=== PATIENT | female | born 1945 | race Caucasian/White ===

== ENCOUNTER 2022-01-17 21:41 | Inpatient (IN) | payer MEDICARE, SELFPAY ==
--- NOTE | ~2022-01-17 | CT_ITS ---
EXAMINATION: CT HEAD WITHOUT CONTRAST CLINICAL INFORMATION: Stroke protocol COMPARISON: None. TECHNIQUE: Multidetector CT examination of the head is performed without contrast. This CT examination was performed using dose optimization techniques as appropriate, variously including the following: *Automated exposure control *Adjustment of mA and/or kV according to patient size (this includes techniques or standardized protocols for targeted exams where dose is matched to indication/reason for exam; i.e. extremities or head) *Use of iterative reconstruction technique DLP: 723 mGy-cm FINDINGS: There is no evidence of a recent intracranial hemorrhage or extra-axial collection. The midline structures are nondisplaced. The ventricles, cisterns, and sulci are within normal limits. There is no evidence of an intra-axial mass. There are no suspicious focal areas of abnormal brain attenuation. The mckeon-white interface is within normal limits. There is no evidence of acute territorial infarct. There are some scattered nonspecific white matter low attenuating abnormalities. This could be related to microangiopathy. This includes the medial temporal lobe and internal capsules on each side. The paranasal sinuses and mastoids are within normal limits. CT/CT head for stroke IMPRESSION: 1. There is no evidence of a recent intracranial hemorrhage. 2. No acute infarct. 3. Nonspecific white matter disease. This critical result was discussed with Roz Morales at 2200 hours on 01/17/22 and it was ascertained that the content and urgency of the report was understood at the time of direct communication.
--- NOTE | ~2022-01-17 | XR_ITS ---
EXAMINATION: XR CHEST CLINICAL INFORMATION: Shortness of breath COMPARISON: None TECHNIQUE: Frontal view of the chest was obtained. FINDINGS: No significant abnormality is noted involving the heart, lungs, mediastinum, bony thorax or soft tissues. XR/XR chest 1V IMPRESSION: Unremarkable examination.
--- NOTE | ~2022-01-17 | CT_ITS ---
CT ANGIOGRAM NECK WITH CONTRAST CT ANGIOGRAM BRAIN WITH CONTRAST CLINICAL INFORMATION: Fall. Stroke. COMPARISON: Head CT performed earlier the same day. TECHNIQUE: Test bolus sequences followed by intravenous administration 70 mL of Omnipaque 350. Helical imaging was performed in the axial plane from the thoracic inlet to the skull vertex. Delayed postcontrast imaging of the head was also performed. The data was processed at the 3d technologist workstation for generation of MIP sequences. Angled MIPs and volume rendered reformatted images were also generated at an offline 3D workstation under concurrent supervision. Stenoses are assessed in accordance with NASCET criteria unless otherwise indicated. This CT examination was performed using dose optimization techniques as appropriate, variously including the following: *Automated exposure control *Adjustment of mA and/or kV according to patient size (this includes techniques or standardized protocols for targeted exams where dose is matched to indication/reason for exam; i.e. extremities or head) *Use of iterative reconstruction technique FINDINGS: BRAIN: There is mild to moderate chronic microangiopathy. [There is no intracranial hemorrhage, hydrocephalus, extra-axial surface collection, midline shift, or other herniation pattern. [place] to white matter differentiation is diffusely maintained without evidence of an evolved acute territorial infarct. The basilar cisterns are preserved. No significant soft tissue abnormality. No acute osseous abnormality. There is mild mucosal thickening throughout the paranasal sinuses. Mastoid air cells are clear. CERVICAL SOFT TISSUES AND LUNG APICES: Imaged upper lungs are clear. There is multilevel cervical spondylosis. No significant soft tissue findings. NECK CTA: [There is a classic 3 vessel configuration of the aortic arch. Proximal arch vessels are non-stenotic. The vertebral arteries are codominant. No significant ostial stenosis is visualized on either side. Both vertebral arteries are widely patent throughout their extracranial cervical course. Both common carotid arteries are normal in course and caliber. There is atherosclerotic calcification involving the carotid bifurcations bilaterally without significant stenosis involving the internal carotid arteries on either side.] BRAIN CTA: Atherosclerotic calcification throughout the carotid siphons bilaterally without significant stenosis. No focal flow-limiting stenosis nor discrete proximal large artery occlusion. No aneurysm. Timing of the contrast bolus allows assessment of the major dural venous sinuses, which all opacify normally] CT/CT angio head neck stroke IMPRESSION: - No acute intracranial findings. Mild to moderate chronic microangiopathy. If focal neurologic deficit persists, MRI would be more sensitive in assessment. - No acute arterial occlusions and no significant arterial stenoses within the head or neck. There is atherosclerotic calcification involving the carotid bifurcations bilaterally without significant stenosis involving the internal carotid arteries on either side.] Findings discussed with Dr. Morales at 10:47 PM on 01/17/2022.
--- NOTE | ~2022-01-17 | MR_ITS ---
EXAMINATION: MR BRAIN WITHOUT CONTRAST CLINICAL INFORMATION: Stroke. COMPARISON: Head CT 01/17/2022. TECHNIQUE: Multiplanar, multisequence imaging of the brain was performed without intravenous contrast. FINDINGS: There is no acute infarction, mass, hemorrhage, or extra-axial collection. Moderate patchy T2/FLAIR hyperintensity seen within the cerebral white matter, typical of chronic microangiopathy. There is diffuse brain parenchymal volume loss with prominence of the ventricles and sulci. The flow voids of the major intracranial arteries appear intact. The bones and extracranial soft tissues are unremarkable. MR/MR head/brain wo con IMPRESSION: No acute infarct, mass lesion, intracranial hemorrhage, or evidence of hydrocephalus. Background changes of moderate chronic microangiopathy and brain parenchymal volume loss.
--- NOTE | 2022-01-17 21:43 | ECG_ITS ---
Test Reason : ams Blood Pressure : / mmHG Vent. Rate : 076 BPM Atrial Rate : 076 BPM P-R Int : 152 ms QRS Dur : 082 ms QT Int : 396 ms P-R-T Axes : 042 064 054 degrees QTc Int : 445 ms Normal sinus rhythm Normal ECG No previous ECGs available Referred By: Roz Morales Electronically Signed By:Rj Quan
[2022-01-17 21:46] VITALS: BP 117/66; PULSE 71; PULSE 89; RESP 17; TEMP 36.7; O2SAT 97; BMI 42.9
--- NOTE | 2022-01-17 21:50 | ED.NEUROSD ---
HPI - Neuro Symptoms/Deficit General Chief Complaint: Stroke Stated Complaint: Stroke Time Seen by Provider: 01/17/22 21:42 History of Present Illness HPI Narrative: Patient is a 76-year-old female with a history of TIAs in the past. Presents today with having acute episode of confusion. There was no seizure that was witnessed. There was a question fall that happened prior. Her helped her to the ground. Patient was very confused. Was yelling out mallet random words. On EMS arrival patient's symptoms seems that improved. Gradually over the ride in patient is now answering questions. No weakness in the upper or the lower extremity. No previous history of TIAs. No coughing or congestion upper respiratory symptoms. No changes in speech. Now is answering questions. Related Data Allergies Allergy/AdvReac Type Severity Reaction Status Date / Time No Known Allergies Allergy Verified 01/17/22 21:42 Review of Systems Review of Systems: Positive confusion No chest pain or shortness of breath no diaphoresis Sugar was over 100 Yes all other systems are reviewed and are negative [facility] Past Medical History Attestation statement: The following information was validated with the patient. Social History Social History Advance Directives: Yes Advance Directives Information Provided: No Advance Directives on File: No Physical Exam Vital Signs: Vital Signs: Last Vital Signs Temp 97.9 F 01/17/22 22:30 Pulse 76 01/17/22 22:30 Resp 16 01/17/22 22:30 BP 105/51 L 01/17/22 22:30 Pulse Ox 97 01/17/22 22:30 O2 Del Method 01/17/22 22:30 O2 Flow Rate 2 01/17/22 22:30 BMI result Body Mass Index 42.9 Appearance: Alert. Oriented X3. No acute distress. Eyes: Pupils equal, round and reactive to light. ENT: Pharynx normal. Neck: Normal inspection. Neck supple. No lymph nodes noted. No crepitus CVS: Normal heart rate and rhythm. Pulses normal. Normal S1 and S2 Respiratory: No respiratory distress. Breath sounds normal. No Wheezing. No rales Abdomen: Soft and nontender. No rigidity. No distention. good BS x4 Skin: Skin warm and dry. Normal skin color. Normal skin turgor. Extremities: No lower extremity edema. Neurovascular intact to all extremities. No Lacerations. No Rash Neuro: Oriented X 3. No motor deficit. No sensory deficit. Moving all extermities. No slurred speech Medications Administered Discontinued Medications Generic Name Dose Route Start Last Admin Trade Name Selena PRN Reason Stop Dose Admin Iohexol 100 ml 01/17/22 22:07 01/17/22 22:08 Iohexol 350 Mg/Ml 100 Ml Infus..Btl IV 01/17/22 22:08 70 ml ONCE ONE Administration MDM - Neuro Symptoms/Deficit MDM Narrative Medical decision making narrative: 76 years old presents today with having changes in mental status. Patient's urine is grossly infected. Sugar was about 100 there is no evidence hypoglycemia. A stroke alert was called. CT scan of the head was grossly negative for any acute evidence of bleeding. Patient is on Xarelto not a candidate for tPA. Patient's symptoms rapidly improving not a candidate for tPA. In the ED patient answer questions appropriately. Thinks that it is May. Gradually patient's mental status improved even more she is now back to baseline she notices the summer she recognizes her she is awake alert oriented. Moving all extremity. Repeat exam showed neurovascularly intact. NIH stroke scale 0. Question TIA causing patient's symptoms. Patient's case discussed with hospitalist service for admission. Medical Records Attestation: I reviewed the patient's medical records. Lab Data Attestation: I reviewed the patient's lab results. Result diagrams: 01/17/22 22:21 01/17/22 22:21 Labs: Lab Results 01/17/22 01/17/22 01/17/22 Range/Units 21:59 22:21 22:21 WBC 5.9 (4.8-10.8) X10*3/uL RBC 3.88 L (4.20-5.50) X10*6/uL Hgb 11.5 L (12.0-16.0) g/dl Hct 34.7 L (37.0-47.0) % MCV 89.4 (80.0-98.0) fL MCH 29.6 (27.0-33.0) pg MCHC 33.1 (31.0-35.0) g/dl RDW 14.0 (11.0-16.0) % Plt Count 190 (160-400) X10*3/uL MPV 9.6 (9.4-12.3) fL Immature Gran % (Auto) 0.3 (0.0-0.4) % Neut % (Auto) 51.5 (45-73) % Lymph % (Auto) 30.2 (20-40) % [place] % (Auto) 9.6 (2-11) % Eos % (Auto) 7.7 H (0-4) % Baso % (Auto) 0.7 (0-2) % Lymph # (Auto) 1.8 (1.2-4.9) X10*3/uL [place] # (Auto) 0.6 (0.1-1.2) X10*3/uL Eos # (Auto) 0.5 H (0.0-0.4) X10*3/uL Baso # (Auto) 0.0 (0.0-0.2) X10*3/uL Abs Immat Gran (auto) 0.02 (0.00-0.03) X10*3/uL Absolute Neuts (auto) 3.0 (2.0-8.3) x10*3/uL Absolute Nucleated RBC 0.000 (0.0-0.012) X10*3/uL Nucleated RBC % (auto) 0.0 (0.0-0.2) /100WBC PT 18.4 H (10.0-13.1) SEC Whole Blood PT 16.1 H (11.1-13.5) sec INR 1.6 H (0.9-1.1) Whole Blood INR 1.3 H (0.9-1.1) APTT 38.4 H (26.0-36.4) SEC Sodium (135-145) mmol/L Potassium (3.3-5.1) mmol/L Chloride (96-108) mmol/L Carbon Dioxide (22-29) mmol/L Anion Gap (12-20) BUN (9-16) mg/dL Creatinine (0.5-1.4) mg/dL Estim Creat Clear Calc Estimated GFR POC Glucose (60-115) mg/dL Random Glucose (60-115) mg/dL Calcium (8.4-10.2) mg/dL Phosphorus (2.7-4.5) mg/dL Magnesium (1.6-2.6) mg/dL Total Creatine Kinase (26-140) U/L Troponin I High Sens (<3.5-17.0) ng/L Urine Color Urine Appearance Urine pH (5.0-9.0) Ur Specific Grass Range (1.005-1.025) Urine Protein (Neg-Trace) mg/dL Urine Glucose (UA) (Negative) mg/dL Urine Ketones (Negative) mg/dL Urine Blood (Negative) Urine Nitrite (Negative) Ur Leukocyte Esterase (Negative) Urine RBC (0-2) /HPF Urine WBC (0-5) /HPF Ur Squamous Epith Cells (0-2) /HPF Urine Bacteria (None Seen) Hyaline Casts (0-2) /LPF 01/17/22 01/17/22 01/17/22 Range/Units 22:21 22:21 22:35 WBC (4.8-10.8) X10*3/uL RBC (4.20-5.50) X10*6/uL Hgb (12.0-16.0) g/dl Hct (37.0-47.0) % MCV (80.0-98.0) fL MCH (27.0-33.0) pg MCHC (31.0-35.0) g/dl RDW (11.0-16.0) % Plt Count (160-400) X10*3/uL MPV (9.4-12.3) fL Immature Gran % (Auto) (0.0-0.4) % Neut % (Auto) (45-73) % Lymph % (Auto) (20-40) % [place] % (Auto) (2-11) % Eos % (Auto) (0-4) % Baso % (Auto) (0-2) % Lymph # (Auto) (1.2-4.9) X10*3/uL [place] # (Auto) (0.1-1.2) X10*3/uL Eos # (Auto) (0.0-0.4) X10*3/uL Baso # (Auto) (0.0-0.2) X10*3/uL Abs Immat Gran (auto) (0.00-0.03) X10*3/uL Absolute Neuts (auto) (2.0-8.3) x10*3/uL Absolute Nucleated RBC (0.0-0.012) X10*3/uL Nucleated RBC % (auto) (0.0-0.2) /100WBC PT (10.0-13.1) SEC Whole Blood PT (11.1-13.5) sec INR (0.9-1.1) Whole Blood INR (0.9-1.1) APTT (26.0-36.4) SEC Sodium 140 (135-145) mmol/L Potassium 3.7 (3.3-5.1) mmol/L Chloride 104 (96-108) mmol/L Carbon Dioxide 24 (22-29) mmol/L Anion Gap 16 (12-20) BUN 16 (9-16) mg/dL Creatinine 0.73 (0.5-1.4) mg/dL Estim Creat Clear Calc 82.1 Estimated GFR > 60 POC Glucose 93 (60-115) mg/dL Random Glucose 90 (60-115) mg/dL Calcium 9.3 (8.4-10.2) mg/dL Phosphorus 2.4 L (2.7-4.5) mg/dL Magnesium 1.8 (1.6-2.6) mg/dL Total Creatine Kinase 59 (26-140) U/L Troponin I High Sens < 3.5 (<3.5-17.0) ng/L Urine Color Urine Appearance Urine pH (5.0-9.0) Ur Specific [place] Range (1.005-1.025) Urine Protein (Neg-Trace) mg/dL Urine Glucose (UA) (Negative) mg/dL Urine Ketones (Negative) mg/dL Urine Blood (Negative) Urine Nitrite (Negative) Ur Leukocyte Esterase (Negative) Urine RBC (0-2) /HPF Urine WBC (0-5) /HPF Ur Squamous Epith Cells (0-2) /HPF Urine Bacteria (None Seen) Hyaline Casts (0-2) /LPF 01/17/22 Range/Units 23:06 WBC (4.8-10.8) X10*3/uL RBC (4.20-5.50) X10*6/uL Hgb (12.0-16.0) g/dl Hct (37.0-47.0) % MCV (80.0-98.0) fL MCH (27.0-33.0) pg MCHC (31.0-35.0) g/dl RDW (11.0-16.0) % Plt Count (160-400) X10*3/uL MPV (9.4-12.3) fL Immature Gran % (Auto) (0.0-0.4) % Neut % (Auto) (45-73) % Lymph % (Auto) (20-40) % [place] % (Auto) (2-11) % Eos % (Auto) (0-4) % Baso % (Auto) (0-2) % Lymph # (Auto) (1.2-4.9) X10*3/uL [place] # (Auto) (0.1-1.2) X10*3/uL Eos # (Auto) (0.0-0.4) X10*3/uL Baso # (Auto) (0.0-0.2) X10*3/uL Abs Immat Gran (auto) (0.00-0.03) X10*3/uL Absolute Neuts (auto) (2.0-8.3) x10*3/uL Absolute Nucleated RBC (0.0-0.012) X10*3/uL Nucleated RBC % (auto) (0.0-0.2) /100WBC PT (10.0-13.1) SEC Whole Blood PT (11.1-13.5) sec INR (0.9-1.1) Whole Blood INR (0.9-1.1) APTT (26.0-36.4) SEC Sodium (135-145) mmol/L Potassium (3.3-5.1) mmol/L Chloride (96-108) mmol/L Carbon Dioxide (22-29) mmol/L Anion Gap (12-20) BUN (9-16) mg/dL Creatinine (0.5-1.4) mg/dL Estim Creat Clear Calc Estimated GFR POC Glucose (60-115) mg/dL Random Glucose (60-115) mg/dL Calcium (8.4-10.2) mg/dL Phosphorus (2.7-4.5) mg/dL Magnesium (1.6-2.6) mg/dL Total Creatine Kinase (26-140) U/L Troponin I High Sens (<3.5-17.0) ng/L Urine Color Yellow Urine Appearance Clear Urine pH 6.5 (5.0-9.0) Ur Specific Grass Range 1.015 (1.005-1.025) Urine Protein Negative (Neg-Trace) mg/dL Urine Glucose (UA) Negative (Negative) mg/dL Urine Ketones Negative (Negative) mg/dL Urine Blood Negative (Negative) Urine Nitrite Negative (Negative) Ur Leukocyte Esterase Trace H (Negative) Urine RBC 0-2 (0-2) /HPF Urine WBC 0-5 (0-5) /HPF Ur Squamous Epith Cells 0-2 (0-2) /HPF Urine Bacteria None Seen (None Seen) Hyaline Casts 0-2 (0-2) /LPF NIH Stroke Scale Time: 22:08 Level of Consciousness: Alert Level of Consciousness Questions: Answers both questions correctly Level of Consciousness Commands: Performs both tasks correctly Best Gaze: Normal Visual: No visual loss Facial Palsy: Normal Motor Arm (Right): No drift Motor Arm (Left): No drift Motor Leg (Right): No drift Motor Leg (Left): No drift Limb Ataxia: Absent Sensory: Normal Best Language: No aphasia Dysarthia: Normal Extinction and Inattention: No abnormality Score: 0 Discharge Plan Discharge Clinical Impression: Transient cerebral ischemia Patient Disposition: Admitted As Inpatient
[2022-01-17 22:02] LABS: Prothrombin Time Whole Bld POC 16.1 sec (11.1-13.5); ~PT, ~INR - Anti Coag Clinic 1.3 (0.9-1.1)
[2022-01-17] MEDS: iohexoL 350 MG/ML 100 ML INFUS..BTL IV (22:08)
[2022-01-17 22:30] VITALS: BP 105/51; PULSE 76; RESP 16; TEMP 36.6; O2SAT 97
[2022-01-17 22:31] LABS: MANUAL DIFF FLAG NO
[2022-01-17 22:32] LABS: Basophils Percent Auto 0.7 % (0-2); Eosinophils Absolute Auto 0.5 X10*3/uL (0.0-0.4); Eosinophils Percent Auto 7.7 % (0-4); Hematocrit 34.7 % (37.0-47.0); Hemoglobin 11.5 g/dl (12.0-16.0); Imm Gran Abs Auto 0.02 X10*3/uL (0.00-0.03); Imm Gran Pct Auto 0.3 % (0.0-0.4); Lymphocytes Absolute Auto 1.8 X10*3/uL (1.2-4.9); Lymphocytes Percent Auto 30.2 % (20-40); Mean Corpuscular HGB Conc 33.1 g/dl (31.0-35.0); Mean Corpuscular Hemoglobin 29.6 pg (27.0-33.0); Mean Corpuscular Volume 89.4 fL (80.0-98.0); Mean Platelet Volume 9.6 fL (9.4-12.3); Monocytes Absolute Auto 0.6 X10*3/uL (0.1-1.2); Monocytes Percent Auto 9.6 % (2-11); Neutrophils Percent Auto 51.5 % (45-73); Platelet Count 190 X10*3/uL (160-400); Red Blood Count 3.88 X10*6/uL (4.20-5.50); White Blood Count 5.9 X10*3/uL (4.8-10.8)
[2022-01-17 22:39] LABS: Glucose, Whole Blood 93 mg/dL (60-115)
[2022-01-17 22:39] LABS: INTERNATIONAL NORM RATIO 1.6 (0.9-1.1); Prothrombin Time 18.4 SEC (10.0-13.1)
[2022-01-17 22:41] LABS: Partial Thromboplastin Time 38.4 SEC (26.0-36.4)
[2022-01-17 22:49] LABS: Anion Gap 16 (12-20); Blood Urea Nitrogen 16 mg/dL (9-16); Calcium 9.3 mg/dL (8.4-10.2); Carbon Dioxide 24 mmol/L (22-29); Creatinine Clr Calc Pharmacy 82.1; Estimated Glomerular Filt Rate > 60; Glucose Random 90 mg/dL (60-115); Magnesium 1.8 mg/dL (1.6-2.6); Phosphorus 2.4 mg/dL (2.7-4.5)
[2022-01-17 22:50] LABS: Chloride 104 mmol/L (96-108); Potassium 3.7 mmol/L (3.3-5.1); Sodium 140 mmol/L (135-145)
[2022-01-17 22:55] LABS: Troponin-I High Sensitivity < 3.5 ng/L (<3.5-17.0)
[2022-01-17 23:02] LABS: Stroke Lab Use COMPLETE
[2022-01-17 23:11] LABS: Appearance Urine Clear; Color Urine Yellow; Glucose Urine UA Negative (Negative); Leukocyte Esterase Urine Trace (Negative); Nitrite Urine Negative (Negative); PH 6.5 (5.0-9.0); Specific Gravity - Urine 1.015 (1.005-1.025); UMIC TRIGGER UACC YES; Urine Blood Negative (Negative); Urine Ketones Negative (Negative); Urine Protein Negative (Neg-Trace)
[2022-01-17 23:16] LABS: Bacteria Urine None Seen (None Seen); Hyaline Casts Urine 0-2 /LPF (0-2); RBC Urine 0-2 /HPF (0-2); Squamous Epithelial Cell Urine 0-2 /HPF (0-2); WBC Urine 0-5 /HPF (0-5)
--- NOTE | 2022-01-17 23:22 | PC.NURSE ---
this rn and anastacia hutton assisted pt on bedpan. able to obtain urine sample at this time. linen changed on bed and extra linen removed from bed. pt okay'd visit from at this time
--- NOTE | 2022-01-18 | EEG_ITS ---
This is a 16-channel EEG with an EKG lead. The patient is reported awake during the tracing. Background EEG rhythm is about 10 hertz, 5 to 20 microvolt posteriorly, lower amplitude fast anteriorly. Photic stimulation does not produce any significant abnormality. Hyperventilation is not performed. Cardiac lead does not reveal any significant abnormality. No sharp wave spikes or paroxysmal tendency or asymmetry noted. IMPRESSION: Unremarkable EEG. MD CAITY Ashley/NOEMÍ / [id number]
--- NOTE | 2022-01-18 00:28 | PM.IMHP ---
History of Present Illness Date of Service: 01/18/22 Chief Complaint: Speech deficit This is a 76-year-old female with pertinent history of paroxysmal atrial fibrillation on Xarelto, mood disorder, essential hypertension, mixed hyperlipidemia who presents to the emergency department for evaluation of speech deficit. Patient states prior to presentation her noticed that patient was not making sense. She had difficulty in speech which lasted for unknown duration of time. Patient's symptoms gradually improved and in the ER patient was with normal speech and mentation. Patient states she has a history of TIAs/strokes and previously it presented with similar speech deficit. No motor weakness noted. No tongue bite, urinary or bowel incontinence. No jerking movement of extremities. No loss of consciousness. Patient denies fever, chills, chest discomfort, palpitations, shortness of breath, abdominal pain, changes in urinary or bowel habits. No vision changes, tingling numbness In the emergency department, CT head without acute intracranial abnormality Review of Systems Constitutional: Constitutional: Reports no additional constitutional complaints Cardiovascular: Cardiovascular: Reports no additional cardiovascular complaints Respiratory: Respiratory: Reports no additional respiratory complaints Gastrointestinal: Gastrointestinal: Reports no additional gastrointestinal complaints Genitourinary: Genitourinary: Reports no additional female genitourinary complaints Musculoskeletal: Musculoskeletal: Reports no additional musculoskeletal complaints Neurologic: Reports Abnormal speech present [facility] Medical History Afib Hyperlipidemia Hypertension Mood disorder Transient cerebral ischemia Functional capacity: independent ambulation Social History Alcohol intake: current Alcohol intake frequency: 3 or more drinks per day Alcohol type: wine Smoked in Last 30 Days: No Use of substances other than those prescribed or required for medical reasons: No Advance Directives: Yes Advance Directives Information Provided: No Advance Directives on File: No Meds Allergies Allergy/AdvReac Type Severity Reaction Status Date / Time No Known Allergies Allergy Verified 01/17/22 21:42 Active Medications: Current Medications Acetaminophen (Acetaminophen 325 Mg Tablet) 650 mg PO Q6H PRN PRN Reason: Pain, Mild (Pain Scale 1-3) Melatonin (Melatonin 3 Mg Tablet) 6 mg PO BEDTIME PRN PRN Reason: Insomnia Ondansetron HCl (Ondansetron Hcl 4 Mg/2 Ml Vial) 4 mg IVPUSH Q8H PRN PRN Reason: Nausea and Vomiting Pharmacy Consult (Consult Rx Perform Med Rec) 1 each MISCELLANE ONCE PRN PRN Reason: Consult order Physical Exam Vital Signs and Narrative: Vital Signs: Last Vital Signs Temp 97.9 F 01/17/22 22:30 Pulse 76 01/17/22 22:30 Resp 16 01/17/22 22:30 BP 105/51 L 01/17/22 22:30 Pulse Ox 97 01/17/22 22:30 O2 Del Method 01/17/22 22:30 O2 Flow Rate 2 01/17/22 22:30 BMI result Body Mass Index 42.9 Elderly female lying in bed in no distress Neck supple, no JVD Regular rate and rhythm, S1-S2 heard Regular breath sounds bilaterally, no wheezing or crackles appreciated Abdomen soft nontender, no guarding, no rigidity Patient is awake, alert and oriented to self, place, time and person, no facial droop, strength 5/5 in bilateral upper and lower extremity, no pronator drift, normal speech and able to have conversation, normal shoulder shrug, tongue midline, no nystagmus, uvula midline Psych: Normal mood No pedal edema Neuro: Speech: Abnormal speech present Results Labs CBC and Chem 7: 01/17/22 22:21 01/17/22 22:21 Labs: Laboratory Results - last 24 hr 01/17/22 01/17/22 01/17/22 21:59 22:21 22:21 MCV 89.4 MCH 29.6 MCHC 33.1 RDW 14.0 Plt Count 190 MPV 9.6 Immature Gran % (Auto) 0.3 Neut % (Auto) 51.5 Lymph % (Auto) 30.2 [place] % (Auto) 9.6 Eos % (Auto) 7.7 H Baso % (Auto) 0.7 Lymph # (Auto) 1.8 [place] # (Auto) 0.6 Eos # (Auto) 0.5 H Baso # (Auto) 0.0 Abs Immat Gran (auto) 0.02 Absolute Neuts (auto) 3.0 Absolute Nucleated RBC 0.000 Nucleated RBC % (auto) 0.0 PT 18.4 H Whole Blood PT 16.1 H INR 1.6 H Whole Blood INR 1.3 H APTT 38.4 H Anion Gap Estim Creat Clear Calc Estimated GFR POC Glucose Random Glucose Calcium Phosphorus Magnesium Total Creatine Kinase Troponin I High Sens Urine Color Urine Appearance Urine pH Ur Specific [place] Urine Protein Urine Glucose (UA) Urine Ketones Urine Blood Urine Nitrite Ur Leukocyte Esterase Urine RBC Urine WBC Ur Squamous Epith Cells Urine Bacteria Hyaline Casts 01/17/22 01/17/22 01/17/22 22:21 22:21 22:35 MCV MCH MCHC RDW Plt Count MPV Immature Gran % (Auto) Neut % (Auto) Lymph % (Auto) [place] % (Auto) Eos % (Auto) Baso % (Auto) Lymph # (Auto) [place] # (Auto) Eos # (Auto) Baso # (Auto) Abs Immat Gran (auto) Absolute Neuts (auto) Absolute Nucleated RBC Nucleated RBC % (auto) PT Whole Blood PT INR Whole Blood INR APTT Anion Gap 16 Estim Creat Clear Calc 82.1 Estimated GFR > 60 POC Glucose 93 Random Glucose 90 Calcium 9.3 Phosphorus 2.4 L Magnesium 1.8 Total Creatine Kinase 59 Troponin I High Sens < 3.5 Urine Color Urine Appearance Urine pH Ur Specific [place] Urine Protein Urine Glucose (UA) Urine Ketones Urine Blood Urine Nitrite Ur Leukocyte Esterase Urine RBC Urine WBC Ur Squamous Epith Cells Urine Bacteria Hyaline Casts 01/17/22 23:06 MCV MCH MCHC RDW Plt Count MPV Immature Gran % (Auto) Neut % (Auto) Lymph % (Auto) [place] % (Auto) Eos % (Auto) Baso % (Auto) Lymph # (Auto) [place] # (Auto) Eos # (Auto) Baso # (Auto) Abs Immat Gran (auto) Absolute Neuts (auto) Absolute Nucleated RBC Nucleated RBC % (auto) PT Whole Blood PT INR Whole Blood INR APTT Anion Gap Estim Creat Clear Calc Estimated GFR POC Glucose Random Glucose Calcium Phosphorus Magnesium Total Creatine Kinase Troponin I High Sens Urine Color Yellow Urine Appearance Clear Urine pH 6.5 Ur Specific [place] 1.015 Urine Protein Negative Urine Glucose (UA) Negative Urine Ketones Negative Urine Blood Negative Urine Nitrite Negative Ur Leukocyte Esterase Trace H Urine RBC 0-2 Urine WBC 0-5 Ur Squamous Epith Cells 0-2 Urine Bacteria None Seen Hyaline Casts 0-2 Imaging Radiologist's Impressions: Impressions Head CT 01/17/22 21:50 IMPRESSION: 1. There is no evidence of a recent intracranial hemorrhage. 2. No acute infarct. 3. Nonspecific white matter disease. This critical result was discussed with Roz Morales at 2200 hours on 01/17/22 and it was ascertained that the content and urgency of the report was understood at the time of direct communication. Head/Neck CTA 01/17/22 22:13 IMPRESSION: - No acute intracranial findings. Mild to moderate chronic microangiopathy. If focal neurologic deficit persists, MRI would be more sensitive in assessment. - No acute arterial occlusions and no significant arterial stenoses within the head or neck. There is atherosclerotic calcification involving the carotid bifurcations bilaterally without significant stenosis involving the internal carotid arteries on either side.] Findings discussed with Dr. Morales at 10:47 PM on 01/17/2022. Chest X-Ray 01/17/22 22:16 IMPRESSION: Unremarkable examination. Assessment and Plan (1) Transient cerebral ischemia: Status: Acute (2) Mood disorder: Status: Acute (3) Hypertension: Status: Acute (4) Afib: Status: Acute (5) Hyperlipidemia: Status: Acute Plan This is a 76-year-old female with pertinent history of paroxysmal atrial fibrillation on Xarelto, mood disorder, essential hypertension, mixed hyperlipidemia who presents to the emergency department for evaluation of speech deficit. #. Dysarthria, intermittent, concerning for TIA -will admit patient with shelter monitor. Obtaining MRI of the brain to rule out CVA. Consulted Neurology, appreciate assistance. Already on high-intensity statin. Obtain lipid panel, A1c and echo to complete workup. Defer antiplatelet agent to neurology. Patient is on Xarelto for AFib. #. Paroxysmal atrial fibrillation: on Xarelto #. Mood disorder: On Lexapro #. Essential hypertension: On losartan DVT prophylaxis: Lovenox 40 mg daily Full code Cardiac diet after patient passes bedside swallow screen Admit as inpatient for stroke workup. MRI and neurology consult pending Quality Stroke Does the patient have a stroke diagnosis?: No VTE Prior VTE?: No VTE Risk Level:: Medical - moderate - high VTE Device Contraindication: Treatment Not Indicated VTE Drug Contraindication: N/A - Med Ordered
[2022-01-18 00:51] VITALS: BP 107/52; PULSE 72; RESP 20; TEMP 36.3; O2SAT 95
[2022-01-18] MEDS: Enoxaparin Sodium 40 MG/0.4 ML SYRINGE SUBCUT (01:39)
[2022-01-18 03:35] LABS: Influenza A PCR NEGATIVE (Negative); Influenza B PCR NEGATIVE (Negative); Resp Syncy Virus RNA Qual PCR NEGATIVE (Negative); SARS COV2 PCR INHOUSE NEGATIVE (Negative)
--- NOTE | 2022-01-18 05:04 | PC.NURSE ---
assumed care of patient at this time. able to stand pivot from stretcher to the bed. placed on cardaic monitor. VS stable. will continue neuro checks and hourly rounding for patient safety.
[2022-01-18 05:57] VITALS: BP 129/63; PULSE 76; RESP 17; TEMP 36.8; O2SAT 97
[2022-01-18 06:53] LABS: MANUAL DIFF FLAG NO
[2022-01-18 07:00] LABS: Basophils Percent Auto 0.7 % (0-2); Eosinophils Absolute Auto 0.4 X10*3/uL (0.0-0.4); Eosinophils Percent Auto 7.4 % (0-4); Hematocrit 38.4 % (37.0-47.0); Hemoglobin 12.5 g/dl (12.0-16.0); Imm Gran Abs Auto 0.02 X10*3/uL (0.00-0.03); Imm Gran Pct Auto 0.3 % (0.0-0.4); Lymphocytes Absolute Auto 1.5 X10*3/uL (1.2-4.9); Lymphocytes Percent Auto 26.1 % (20-40); Mean Corpuscular HGB Conc 32.6 g/dl (31.0-35.0); Mean Corpuscular Hemoglobin 29.5 pg (27.0-33.0); Mean Corpuscular Volume 90.6 fL (80.0-98.0); Mean Platelet Volume 10.6 fL (9.4-12.3); Monocytes Absolute Auto 0.5 X10*3/uL (0.1-1.2); Monocytes Percent Auto 9.1 % (2-11); Neutrophils Absolute Auto 3.3 x10*3/uL (2.0-8.3); Neutrophils Percent Auto 56.4 % (45-73); Platelet Count 226 X10*3/uL (160-400); Red Blood Count 4.24 X10*6/uL (4.20-5.50); Red Cell Distribution Width 14.2 % (11.0-16.0); White Blood Count 5.8 X10*3/uL (4.8-10.8)
[2022-01-18 07:51] LABS: Estimated Average Glucose 97 mg/dL
[2022-01-18 08:00] LABS: Anion Gap 8 (12-20); Blood Urea Nitrogen 15 mg/dL (9-16); Calcium 9.5 mg/dL (8.4-10.2); Carbon Dioxide 25 mmol/L (22-29); Chloride 108 mmol/L (96-108); Creatinine Clr Calc Pharmacy 89.5; Estimated Glomerular Filt Rate > 60; Glucose Random 87 mg/dL (60-115); Potassium 4.6 mmol/L (3.3-5.1); Sodium 136 mmol/L (135-145)
[2022-01-18] MEDS: Escitalopram Oxalate 5 MG TABLET PO (08:22)
[2022-01-18] MEDS: Atorvastatin Calcium 40 MG TABLET PO (08:23)
[2022-01-18] MEDS: Rivaroxaban 20 MG TABLET PO ×2 (08:23→21:13)
[2022-01-18 08:39] VITALS: BP 132/60; PULSE 79; RESP 18; TEMP 36.2; O2SAT 98
--- NOTE | 2022-01-18 08:47 | PHA.MEDREC ---
Pharmacy Consult ? Medication Reconciliation Pharmacy has completed the medication reconciliation. REVIEWED OVERNIGHT LIST AND COMPARED TO CLAIM HISTORY
--- NOTE | 2022-01-18 09:33 | MHC.CM.PN ---
Interview conducted w/Tyrese Zimmer (); phone number listed accurate. Patient lives w/ at home, 2 steps to enter, [place] layout. No prior services or equipment. Previously independent. Still drives. PCP just retired, she has been assigned a new PCP within the same practice, however the name is unknown at this time; practice is: [facility] [address] [place]. Plan is home w/ via to transport.
--- NOTE | 2022-01-18 10:22 | P.CNNE_ITS ---
History of Present Illness Data of Consult Service Date: 01/18/22 Primary Care Provider: Unknown Physician HPI Reason for consult: Difficulty speaking 76 years old woman with underlying diagnosis of atrial fibrillation on anticoagulation came to hospital with difficulty speaking noted by . When she came to hospital her speech was okay. When I asked her why she was here, she stated that she passed out. When asked again about details, she said that she had no recollection of why she was here and what had happened. She said that she was at home sitting with her and then she was in hospital. There was no witnessing of any loss of consciousness. Review of Systems Review of Systems: No recent cold or flu-like illness PMFSH Past Medical History Medical History Afib Hyperlipidemia Hypertension Mood disorder Transient cerebral ischemia Functional capacity: independent ambulation Social History Social History Alcohol intake: current Alcohol intake frequency: 3 or more drinks per day Alcohol type: wine Smoked in Last 30 Days: No Use of substances other than those prescribed or required for medical reasons: No Advance Directives: Yes Advance Directives Information Provided: No Advance Directives on File: No service: No Current occupational status: retired [employer] Allergies Allergy/AdvReac Type Severity Reaction Status Date / Time No Known Allergies Allergy Verified 01/17/22 21:42 Active Medications: Current Medications Acetaminophen (Acetaminophen 325 Mg Tablet) 650 mg PO Q6H PRN PRN Reason: Pain, Mild (Pain Scale 1-3) Atorvastatin Calcium (Atorvastatin Calcium 40 Mg Tablet) 40 mg PO DAILY [facility] Last Admin: 01/18/22 08:23 Dose: 40 mg Escitalopram Oxalate (Escitalopram Oxalate 5 Mg Tablet) 5 mg PO DAILY [facility] Last Admin: 01/18/22 08:22 Dose: 5 mg Melatonin (Melatonin 3 Mg Tablet) 6 mg PO BEDTIME PRN PRN Reason: Insomnia Ondansetron HCl (Ondansetron Hcl 4 Mg/2 Ml Vial) 4 mg IVPUSH Q8H PRN PRN Reason: Nausea and Vomiting Pharmacy Consult (Consult Rx Perform Med Rec) 1 each MISCELLANE ONCE PRN PRN Reason: Consult order Rivaroxaban (Rivaroxaban 20 Mg Tablet) 20 mg PO BEDTIME [facility] Last Admin: 01/18/22 08:23 Dose: 20 mg Home Medications Medication Instructions Recorded Confirmed Last Taken Type atorvastatin 40 mg tablet 40 mg PO DAILY 01/18/22 01/18/22 Unknown History escitalopram oxalate 5 mg tablet 5 mg PO DAILY 01/18/22 01/18/22 Unknown History losartan 50 mg tablet 50 mg PO DAILY 01/18/22 01/18/22 Unknown History rivaroxaban 20 mg tablet (Xarelto) 20 mg PO QPM 01/18/22 01/18/22 Unknown History Physical Exam Vital Signs: Vital Signs: Last Vital Signs Temp 97.1 F 01/18/22 08:39 Pulse 79 01/18/22 08:39 Resp 18 01/18/22 08:39 BP 132/60 01/18/22 08:39 Pulse Ox 98 01/18/22 08:39 O2 Del Method 01/18/22 08:39 O2 Flow Rate 2 01/18/22 08:39 BMI result Body Mass Index 42.9 Neuro: Other: She was alert and awake with normal spontaneity of speech fluency comprehension and anxious affect. Face was symmetrical. Visual maynard are full. There was no pronator drift. Deep tendon reflexes were trace to absent with flexor plantars. Results Labs CBC & Chem 7: 01/18/22 05:58 01/18/22 05:58 Labs: Short CBC 01/17/22 01/18/22 Range/Units 22:21 05:58 WBC 5.9 5.8 (4.8-10.8) X10*3/uL Hgb 11.5 L 12.5 (12.0-16.0) g/dl Hct 34.7 L 38.4 (37.0-47.0) % Plt Count 190 226 (160-400) X10*3/uL BMP 01/17/22 01/18/22 22:21 05:58 Sodium 140 136 Potassium 3.7 4.6 D Chloride 104 108 Carbon Dioxide 24 25 BUN 16 15 Creatinine 0.73 0.67 Calcium 9.3 9.5 Cardiac Enzymes 01/17/22 Range/Units 22:21 Total Creatine Kinase 59 (26-140) U/L Urine 01/17/22 Range/Units 23:06 Urine Color Yellow Urine Appearance Clear Urine pH 6.5 (5.0-9.0) Ur Specific [place] 1.015 (1.005-1.025) Urine Protein Negative (Neg-Trace) mg/dL Urine Glucose (UA) Negative (Negative) mg/dL Moderate chronic microvascular ischemic changes and 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 Also noted was significant bilateral frontoparietal cortical atrophy. Assessment and Plan (1) Transient cerebral ischemia: Status: Acute 76 years old woman who came to hospital with difficulty speaking noted by . She provided a different history to me stating that she either passed out or became unresponsive and woke up in hospital. Her examination was n onfocal. Her brain imaging reveals significant chronic vascular disease but also significant bilateral frontoparietal atrophy suggesting that she suffered from underlying degenerative dementia. As far as explanation for this episode is concerned, vascular disease was a possibility but seizure disorder was another possibility in which case she would not remember. Not able to remember might also be related to dementia. In any case, I recommend obtaining an EEG, which can be done as an outpatient if needed or tomorrow. Otherwise family education is needed for explanation of her cognitive difficulties. She should not drive. Procedures Date of Service Date of Service: 01/18/22
--- NOTE | 2022-01-18 10:38 | PM.EVENT ---
Event Note Date of Service: 01/18/22 Event Note: Day Team follow up 76 yo F admitted for concern over TIA. Seen by neurology who feel possible seizures. Recs EEG. MRI planned for tomorrow, will EEG remainder per H&P done this AM.
[2022-01-18 15:45] VITALS: BP 151/63; PULSE 81; RESP 14; TEMP 36.6; O2SAT 96
--- NOTE | 2022-01-18 18:19 | PC.NURSE ---
Pt ambulated to bathroom with 1 assist. No complaints of sob and pt 02 at 96 on ra. RN aware
[2022-01-18 20:00] VITALS: BP 162/117; PULSE 80; RESP 19; TEMP 36.7; O2SAT 96
[2022-01-18] MEDS: Acetaminophen 325 MG TABLET 650 MG PO (21:13)
[2022-01-18 21:26] VITALS: BMI 29.0
[2022-01-19] VITALS: BP 156/74; PULSE 74; RESP 18; TEMP 37.1; O2SAT 98
[2022-01-19 04:00] VITALS: PULSE 80; RESP 20; TEMP 37.1; O2SAT 98
[2022-01-19 05:32] VITALS: BP 177/89
--- NOTE | 2022-01-19 07:00 | CA_ITS ---
Transthoracic Echocardiogram Patient (Last, First, Middle): Amy Zimmer K Gender: Female Date of : 1945 Age: 76 Procedure Date: 01/19/2022 Procedure Type: Transthoracic Echocardiogram Location: [facility] [place] Height: 160.02 cm Weight: 76.2 kg BSA: 1.80 m2 Heart Rate: bpm BP: 177 / 89 mmHg Combining Machine Operator: Referring MD: Genet Gillespie MD Symptoms: stroke Study Quality: Fair ECG Rhythm: Sinus Conclusions: - Normal left ventricular size and systolic function. There is moderately increased left ventricular wall thickness. The visually estimated ejection fraction is between 55-60%. - E/E prime ratio is between 8 and 15 consistent with indeterminate filling pressures. - The basal inferior segment is hypokinetic. Findings Procedure Information Contrast agent, definity, is being given per protocol without apparent complications. Left Ventricle Normal left ventricular size and systolic function. There is moderately increased left ventricular wall thickness. The visually estimated ejection fraction is between 55-60%. There is evidence of regional wall motion abnormalities. Abnormal diastolic function is noted. Spectral Doppler is indicative of an impaired relaxation filling pattern. E/E prime ratio is between 8 and 15 consistent with indeterminate filling pressures. Wall Motion Rest Echo Findings The basal inferior segment is hypokinetic. Right Ventricle Normal right ventricular cavity size and systolic function. Atria The left atrium is normal in size. Aortic Valve There is a normal trileaflet aortic valve. There is no aortic valve stenosis. There is trace (trivial) aortic valve regurgitation. Mitral Valve Normal mitral valve structure and function. There is no mitral valve regurgitation. There is no mitral valve stenosis. Pulmonic Valve Normal pulmonic valve structure and function. There is trace pulmonic valve regurgitation. Tricuspid Valve Normal tricuspid valve structure. There is trace tricuspid valve regurgitation. Normal right atrial pressure. There is no evidence of pulmonary hypertension. Great Vessels All visible segments of the aorta are normal in size. The visualized portions of the pulmonary artery and branches are normal. Venous The inferior vena cava is normal in size and collapses greater than 50% with inspiration. Pericardium/Pleural There is no evidence of pericardial effusion. Prior Study Comparison No prior study available for comparison. Measurements 2D Linear Measurements Ao Root: 3.40 2.1-3.5 cm LVOT Diam: 2.00 3.0+(-)1.3 cm Mitral Valve MV Pk E: 0.57 MV PK A: 0.94 MV Decel Time: 177.00 E/A: 0.60 E'Lateral: 5.11 E'Medial: 5.33 E/E' Med: 10.70 E/E' Lat: 11.20 PHT: 52.00 MVA PHT: 4.23 Decel [place]: 3.23 Aortic Valve AoV Pk Panda: 1.41 AoV Mn Panda: 0.90 AoV VTI: 0.32 AoV Pk Grad: 8.00 Aov Mn Grad: 4.00 NGUYEN Cont.VTI: 2.15 LVOT LVOT Pk Panda: 0.84 LVOT Mn Panda: 0.50 LVOT VTI: 0.22 LVOT Pk Grad: 3.00 LVOT Mn Grad: 1.00 LVOT Diam: 2.00 LVOT Area: 3.14 Diastolic Function MV Pk E: 0.57 MV Pk A: 0.94 E/A: 0.60 E'Medial: 5.33 E/E' Med: 10.70 E' Laterial: 5.11 E/E' Lat: 11.20 Right Ventricle TAPSE (mm): 29.00 TVS' Panda: 16.00 Tricuspid Valve TR Pk Panda: 2.21 TR Pk Grad: 20.00 RA Press: 3.00 RVSP: 23.00 Great Vessels Aorta Ao Root-2D: 3.40 2.0-3.7 cm Ao Asc: 3.00 2.1-3.4 cm Pulmonary Valve PV Pk Panda: 0.87 Peak PV Grad: 3.00 Updated in Other Vendor System with Status of Final Rj Quan MD electronically signed on 01/22/2022 8:55:16 AM with status of Final
[2022-01-19 07:57] VITALS: BP 134/67; PULSE 80; RESP 16; TEMP 36; O2SAT 96
[2022-01-19 08:03] LABS: Cholesterol 142 mg/dL; HDL Cholesterol 54 mg/dL; LDL Cholesterol Calculated 66 mg/dl; Triglycerides 111 mg/dL
[2022-01-19] MEDS: Escitalopram Oxalate 5 MG TABLET PO (08:48)
[2022-01-19] MEDS: Atorvastatin Calcium 40 MG TABLET PO (08:48)
[2022-01-19 11:49] VITALS: BP 193/87; PULSE 88; RESP 18; TEMP 36.1; O2SAT 97
--- NOTE | 2022-01-19 14:11 | P.PNIM_ITS ---
Subjective Subjective Date of Service: 01/19/22 Interval History: cc: slurred speech interval history:resolved Cardiovascular Cardiovascular: Reports no additional cardiovascular complaints Respiratory Respiratory: Reports no additional respiratory complaints Physical Exam Vital Signs: Vital Signs: Last Vital Signs Temp 97.0 F 01/19/22 11:49 Pulse 88 01/19/22 11:49 Resp 18 01/19/22 11:49 BP 193/87 H 01/19/22 11:49 Pulse Ox 97 01/19/22 11:49 O2 Del Method 01/19/22 11:49 O2 Flow Rate 2 01/19/22 04:00 BMI result Body Mass Index 29.0 General: AO X 3, no acute distress Resp: CTA bilateral, no accessory muscles used CVS: S1,S2,RRR GI: soft, non tender, non distended Neuro: motor grossly intact, alert Psych: appropriate affect, appropriate insight Objective Data Active Medications Acetaminophen (Acetaminophen 325 Mg Tablet) 650 mg PO Q6H PRN PRN Reason: Pain, Mild (Pain Scale 1-3) Last Admin: 01/18/22 21:13 Dose: 650 mg Documented By: JACQUES Atorvastatin Calcium (Atorvastatin Calcium 40 Mg Tablet) 40 mg PO DAILY [facility] Last Admin: 01/19/22 08:48 Dose: 40 mg Documented By: LUIS Escitalopram Oxalate (Escitalopram Oxalate 5 Mg Tablet) 5 mg PO DAILY [facility] Last Admin: 01/19/22 08:48 Dose: 5 mg Documented By: LUIS Melatonin (Melatonin 3 Mg Tablet) 6 mg PO BEDTIME PRN PRN Reason: Insomnia Midazolam HCl (Midazolam Hcl/Pf 2 Mg/2 Ml Vial) 1 mg IVPUSH ONCE PRN PRN Reason: mri Ondansetron HCl (Ondansetron Hcl 4 Mg/2 Ml Vial) 4 mg IVPUSH Q8H PRN PRN Reason: Nausea and Vomiting Pharmacy Consult (Consult Rx Perform Med Rec) 1 each MISCELLANE ONCE PRN PRN Reason: Consult order Rivaroxaban (Rivaroxaban 20 Mg Tablet) 20 mg PO BEDTIME [facility] Last Admin: 01/18/22 21:13 Dose: 20 mg Documented By: JACQUES Labs CBC & Chem 7: 01/18/22 05:58 01/18/22 05:58 Labs: Laboratory Results - last 24 hr 01/19/22 07:23 Triglycerides 111 Cholesterol 142 LDL Cholesterol, Calc 66 HDL Cholesterol 54 Assessment and Plan (1) Hyperlipidemia: Status: Acute Plan 76-year-old female with pertinent history of paroxysmal atrial fibrillation on Xarelto, mood disorder, essential hypertension, mixed hyperlipidemia who presented to the emergency department for evaluation of speech deficit. Dysarthria, intermittent, concerning for TIA mri pending, eeg pending Paroxysmal atrial fibrillation: on Xarelto Mood disorder Lexapro Essential hypertension losartan DVT prophylaxis: Lovenox 40 mg daily Full code reason for continued hospitalization:mri pending Quality Stroke Does the patient have a stroke diagnosis?: No VTE Prior VTE?: No VTE Risk Level:: Medical - moderate - high VTE Device Contraindication: Treatment Not Indicated VTE Drug Contraindication: N/A - Med Ordered
[2022-01-19] MEDS: Midazolam HCl/PF 2 MG/2 ML VIAL 1 MG IVPUSH (14:42)
[2022-01-19 15:43] VITALS: BP 157/72; PULSE 80; RESP 18; TEMP 36.7; O2SAT 94
--- NOTE | 2022-01-19 16:10 | PM.DS ---
DS: Providers Provider Date of Service: 01/19/22 Date of admission: 01/18/22 00:23 Primary care physician: Unknown Physician Consults: 01/18/22 00:23 Consult to Neurology Routine Consulting Provider: [facility] Reason for consultation: TIA DS: Diagnosis Discharge Diagnosis (1) Hyperlipidemia: Status: Acute DS: Summary Hospital Course Hospital Course: from initial hpi: Chief Complaint: Speech deficit This is a 76-year-old female with pertinent history of paroxysmal atrial fibrillation on Xarelto, mood disorder, essential hypertension, mixed hyperlipidemia who presents to the emergency department for evaluation of speech deficit.? Patient states prior to presentation her noticed that patient was not making sense.? She had difficulty in speech which lasted for unknown duration of time.? Patient's symptoms gradually improved and in the ER patient was with normal speech and mentation.? Patient states she has a history of TIAs/strokes and previously it presented with similar speech deficit.? No motor weakness noted.? No tongue bite, urinary or bowel incontinence.? No jerking movement of extremities.? No loss of consciousness.? Patient denies fever, chills, chest discomfort, palpitations, shortness of breath, abdominal pain, changes in urinary or bowel habits.? No vision changes, tingling numbness In the emergency department, CT head without acute intracranial abnormality hospital course: Patient was admitted for dysarthria which was concerning for TIA versus seizure. She had an MRI which was unremarkable for acute stroke. EEG was unremarkable. Patient will be discharged home, can follow up with Neurology as outpatient, there is a concern for signs of dementia on her scans. For her paroxysmal atrial fibrillation she was continued on Xarelto. For mood disorders was continue Lexapro. For hypertension she was continued on losartan. Time Spent with Patient Time attestation: Total time spent providing and/or coordinating discharge services: Discharge coordination time: Greater than 30 minutes Quality: Safe Use of Opioids Does Pt have an Active Cancer Diagnosis on the Problem List?: No Quality: Stroke Does the patient have a stroke diagnosis?: No Physical Exam Vital Signs: Vital Signs: Last Vital Signs Temp 98.0 F 01/19/22 15:43 Pulse 80 01/19/22 15:43 Resp 18 01/19/22 15:43 BP 157/72 H 01/19/22 15:43 Pulse Ox 94 01/19/22 15:43 O2 Del Method 01/19/22 15:43 O2 Flow Rate 2 01/19/22 04:00 BMI result Body Mass Index 29.0 General: AO X 3, no acute distress Resp: CTA bilateral, no accessory muscles used CVS: S1,S2,RRR GI: soft, non tender, non distended Neuro: motor grossly intact, alert Psych: appropriate affect, appropriate insight DS: Data Data Completed and Pending Labs on day of discharge: Laboratory Results - last 24 hr 01/19/22 07:23 Triglycerides 111 Cholesterol 142 LDL Cholesterol, Calc 66 HDL Cholesterol 54 Discharge Plan Discharge Anticipated Discharge Date/Time: 01/19/22 16:09 Patient Disposition: Home, Self-Care Discharge Diagnosis: slurred speech Referrals: Physician,Unknown J [Primary Care Provider] - 1 Week Discharge Medications: Continued losartan 50 mg tablet 50 mg PO DAILY atorvastatin 40 mg tablet 40 mg PO DAILY escitalopram oxalate 5 mg tablet 5 mg PO DAILY Xarelto 20 mg tablet 20 mg PO QPM Discharge Orders: Discharge Order (Routine); Ordered 01/19/22 Ordered By: Louie Biggs Diet: Advance to usual diet Activity on Discharge: no driving Stand Alone Forms: Patient Portal Discharge page Care Plan Goals: recovery Health Concerns: episodes of ams Plan of Treatment: avoid excessive etoh, follow up pcp Assessment: see above
== END 2022-01-19 18:00 | disposition home or self-care (01) | DRG 93 ==
LOC: HO.ED 23:35 → HO.EDOVER 01-18 00:28 → HO.IMC 01-18 19:33
PROVIDERS: Admitting Provider Student in an Organized Health Care Education/Training Program; Emergency Provider Emergency Medicine Emergency Medical Services; Visit Provider Internal Medicine
DX: R47.1 Dysarthria and anarthria (principal); E78.5 Hyperlipidemia, unspecified; I48.0 Paroxysmal atrial fibrillation; F39 Unspecified mood [affective] disorder; F03.90 Unspecified dementia, unspecified severity, without behavioral disturbance, psychotic disturbance, mood disturbance, and anxiety; Z20.822 Contact with and (suspected) exposure to COVID-19; Z79.01 Long term (current) use of anticoagulants; Z79.899 Other long term (current) drug therapy
CPT/HCPCS: 0241U; 36415; 70450; 70496; 70498; 70551; 71045; 80048; 80061; 81001; 82550; 82947; 83036; 83735; 84100; 84484; 85025; 85610; 85730; 93005; 93306; 95816; 99285; J1650; J2250; Q9957; Q9967